=== PATIENT | female | born 1985 | race Caucasian/White ===

== ENCOUNTER 2020-10-23 05:24 | Emergency (ER) | payer OTHER ==
[2020-10-23 05:30] VITALS: BP 135/89; PULSE 100; RESP 19; TEMP 98
--- NOTE | 2020-10-23 06:19 | ED ---
ENT HPI - General Chief complaint: Dental/Oral Stated complaint: Dental Pain Time Seen by Provider: 10/23/20 06:01 Source: patient, RN notes reviewed Mode of arrival: ambulatory - History of Present Illness Initial comments: Patient is a 34-year-old female presents to the emergency department complaining of right upper dental pain. Shows is been going on for several days. She notes that she called to get into the dentist but was unable to for the next several days. She notes that the upper right side of her mouth is tender and painful. She notes that she is still able to eat and drink without any issue. She was otherwise a well-appearing 34-year-old female in no apparent distress. She noted that she wanted symptom medic control and antibiotics. She noted her pain was approximately 5 or 6 out of 10 that is constant without relief from at home medications. She denied any chest pain shortness of breath headache nausea vomiting diarrhea constipation fever fatigue chills sore throat difficulty swallowing. - Related Data Previous Rx's Medication Instructions Recorded Penicillin V Potassium [Pen Vee K] 500 mg PO QID #40 tablet 10/23/20 Allergies Allergy/AdvReac Type Severity Reaction Status Date / Time lidocaine Allergy Anaphylaxis Verified 10/23/20 05:31 metoclopramide [From Reglan] AdvReac Rash/Hives Verified 10/23/20 05:31 Review of Systems ROS Statement: Those systems with pertinent positive or pertinent negative responses have been documented in the HPI. ROS Other: All systems not noted in ROS Statement are negative. Past Medical History Additional Past Medical History / Comment(s): autoimmue disorder History of Any Multi-Drug Resistant Organisms: None Reported Past Surgical History: No Surgical Hx Reported Past Psychological History: No Psychological Hx Reported Smoking Status: Never smoker Past Alcohol Use History: None Reported Past Drug Use History: None Reported General Exam Limitations: no limitations General appearance: alert, in no apparent distress Head exam: Present: atraumatic, normocephalic, normal inspection Eye exam: Present: normal appearance, PERRL, EOMI. Absent: scleral icterus, conjunctival injection, periorbital swelling ENT exam: Present: normal exam, mucous membranes moist, other (No obvious abscesses or infections.) Neck exam: Present: normal inspection, full ROM. Absent: tenderness, lymphadenopathy Respiratory exam: Present: normal lung sounds bilaterally. Absent: respiratory distress, wheezes, rales, rhonchi, stridor Cardiovascular Exam: Present: regular rate, normal rhythm, normal heart sounds. Absent: systolic murmur, diastolic murmur, rubs, gallop, clicks Extremities exam: Present: normal inspection, full ROM, normal capillary refill. Absent: tenderness, pedal edema, joint swelling, calf tenderness Neurological exam: Present: alert, oriented X3 Psychiatric exam: Present: normal affect, normal mood Skin exam: Present: warm, dry, intact, normal color. Absent: rash Course Vital Signs 10/23/20 05:28 Temperature 98 F Pulse Rate 100 Respiratory 19 Rate Blood Pressure 135/89 O2 Sat by Pulse 100 Oximetry Medical Decision Making - Medical Decision Making 34-year-old female with a right upper mouth pain states that she thinks it might be a tooth infection. Tylenol 3 starter pack given. Antibiotics will be sent to pharmacy. Given patient's clinical signs and symptoms of no obvious infections or a bscesses patient will be discharged home with antibiotic therapy. Case discussed with Dr. Saba, patient can discharge home in stable condition with follow-up to dentist next several days. Disposition Clinical Impression: Dental infection Disposition: HOME SELF-CARE Condition: Stable Instructions (If sedation given, give patient instructions): Toothache (ED) Additional Instructions: Please return to the Emergency Department if symptoms worsen or any other concerns. Follow-up with the dentist in the next 1-2 days. Follow-up with primary care as needed. Take antibiotics as prescribed. Take Tylenol 3 as prescribed. Prescriptions: Penicillin V Potassium [Pen Vee K] 500 mg PO QID #40 tablet Is patient prescribed a controlled substance at d/c from ED?: No Referrals: None,Stated [Primary Care Provider] - 1-2 days Time of Disposition: 06:19
[2020-10-23] MEDS: ACET/COD 300 MG/30 MG STARTER PACK 6 TAB BTL PO STA (06:37)
== END 2020-10-23 06:44 | disposition home or self-care (01) ==
LOC: EC 05:24
DX: K04.7 Periapical abscess without sinus (principal)
CPT/HCPCS: 99282

== ENCOUNTER 2022-01-04 10:10 | Emergency (ER) | payer OTHER ==
[2022-01-04 10:26] VITALS: RESP 18; TEMP 98.9
[2022-01-04] MEDS ORDERED: SODIUM CHLORIDE 0.9% 500 ML 500 ML IV STA (10:31)
[2022-01-04] MEDS ORDERED: KETOROLAC 15 MG/ML 1 ML VIAL IVP STA (10:31)
[2022-01-04 10:52] LABS: Anisocytosis Slight; Basophils % (A) 1 %; Eosinophils # (A) 0.2 k/uL (0-0.7); Eosinophils % (A) 3 %; HCT 32.1 % (34.0-46.0); HGB 9.3 gm/dL (11.4-16.0); Hypochromasia Marked; Lymphocytes # (A) 1.4 k/uL (1.0-4.8); Lymphocytes % (A) 29 %; MCH 22.4 pg (25.0-35.0); MCV 77.4 fL (80.0-100.0); Mean Platelet Volume 7.5; Microcytosis Slight; Monocytes # (A) 0.3 k/uL (0-1.0); Monocytes % (A) 6 %; Neutrophils # (A) 2.8 k/uL (1.3-7.7); Neutrophils % (A) 58 %; Platelet Count 422 k/uL (150-450); RBC 4.15 m/uL (3.80-5.40); RDW 16.9 % (11.5-15.5); WBC 4.8 k/uL (3.8-10.6)
[2022-01-04 11:15] LABS: ALT 15 U/L (4-34); AST 25 U/L (14-36); African American GFR (CKD) >90 (>60 ml/min/1.73 sqM); Alkaline Phosphatase 50 U/L (38-126); Anion Gap 9 mmol/L; Blood Urea Nitrogen 17 mg/dL (7-17); Calcium 8.4 mg/dL (8.4-10.2); Carbon Dioxide 25 mmol/L (22-30); Chloride 103 mmol/L (98-107); Glucose 86 mg/dL (74-99); Lipase 104 U/L (23-300); Magnesium 1.9 mg/dL (1.6-2.3); Non-African American GFR(CKD) >90 (>60 ml/min/1.73 sqM); Partial Thromboplastin Time 21.5 sec (22.0-30.0); Potassium 4.2 mmol/L (3.5-5.1); Prothrombin Time 10.8 sec (9.0-12.0); Sodium 137 mmol/L (137-145); Total Bilirubin 0.5 mg/dL (0.2-1.3); Total Protein 6.6 g/dL (6.3-8.2)
--- NOTE | 2022-01-04 11:24 | XR ---
EXAMINATION TYPE: XR chest 2V DATE OF EXAM: 01/04/2022 COMPARISON: None HISTORY: 36-year-old female with chest pain TECHNIQUE: PA and lateral views FINDINGS: The cardiomediastinal silhouette, aorta, and pulmonary vasculature are within normal limits. Lungs an d pleural spaces are clear. IMPRESSION: No acute cardiopulmonary process.
[2022-01-04] MEDS ORDERED: HYDROmorphone 0.5 MG/0.5 ML SYRINGE IVP STA (12:44)
[2022-01-04] MEDS ORDERED: ONDANSETRON 4 MG/2 ML VIAL IVP STA (12:44)
[2022-01-04] MEDS ORDERED: ACET/COD 300 MG/30 MG STARTER PACK 6 TAB BTL PO STA (12:46)
--- NOTE | 2022-01-04 12:46 | ED ---
Chest Pain HPI - General Chief Complaint: Chest Pain Stated Complaint: Chest Pain Time Seen by Provider: 01/04/22 10:16 Source: patient, EMS, RN notes reviewed Mode of arrival: EMS Limitations: no limitations - History of Present Illness Initial Comments: 36-year-old female presents emergency Department with chief complaint of right- sided chest pain 4 days. Patient states hurts when she moves or takes deep breath. Denies any palpitations no prior cardiac disease denies hypertension hyperlipidemia diabetes patient has no prior lung disease no history DVT or PE denies any long distance traveling pain no leg swelling.patient had no nausea vomiting cold-like symptoms. - Related Data Home Medications Medication Instructions Recorded Confirmed Dextroamphetamine/Amphetamine 30 mg PO BID@0900,1500 01/04/22 01/04/22 [Adderall] FLUoxetine HCL [PROzac] 20 mg PO DAILY 01/04/22 01/04/22 Levothyroxine Sodium [Synthroid] 50 mcg PO DAILY 01/04/22 01/04/22 Previous Rx's Medication Instructions Recorded Ibuprofen [Motrin] 600 mg PO Q8HR PRN #20 tab 01/04/22 Allergies Allergy/AdvReac Type Severity Reaction Status Date / Time lidocaine Allergy Anaphylaxis Verified 01/04/22 11:02 metoclopramide [From Reglan] AdvReac Rash/Hives Verified 01/04/22 11:02 Review of Systems ROS Statement: Those systems with pertinent positive or pertinent negative responses have been documented in the HPI. ROS Other: All systems not noted in ROS Statement are negative. 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 Absent: scleral icterus, conjunctival injection, periorbital swelling ENT exam: Present: normal exam, normal oropharynx, mucous membranes moist Neck exam: Present: normal inspection, full ROM. Absent: tenderness, meningismus, lymphadenopathy Respiratory exam: Present: normal lung sounds bilaterally, chest wall tenderness. Absent: respiratory distress, wheezes, rales, rhonchi, stridor Cardiovascular Exam: Present: regular rate, normal rhythm, normal heart sounds. Absent: systolic murmur, diastolic murmur, rubs, gallop, clicks GI/Abdominal exam: Present: soft, normal bowel sounds. Absent: distended, tenderness, guarding, rebound, rigid Extremities exam: Present: normal capillary refill. 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 Patient has negative troponin negative d-dimer. Disposition Clinical Impression: Pleurisy Disposition: HOME SELF-CARE Condition: Stable Instructions (If sedation given, give patient instructions): Chest Pain (ED), Costochondritis (ED) Additional Instructions: Please return to the Emergency Department if symptoms worsen or any other concerns. Prescriptions: Ibuprofen [Motrin] 600 mg PO Q8HR PRN #20 tab PRN Reason: Pain Is patient prescribed a controlled substance at d/c from ED?: No Referrals: Nonstaff,Physician [Primary Care Provider] - 1-2 days Time of Disposition: 12:25
[2022-01-04 13:18] VITALS: BP 130/78; PULSE 80
== END 2022-01-04 13:15 | disposition home or self-care (01) ==
LOC: EC 10:10
DX: R09.1 Pleurisy (principal); Z88.8 Allergy status to other drugs, medicaments and biological substances
CPT/HCPCS: 36415; 93005; 85379; 80053; 83690; 83735; 84484; 85025; 85610; 85730; 71046; 99285; 96374; 96361; J1885

== ENCOUNTER 2024-07-20 09:31 | Emergency (ER) | payer OTHER ==
[2024-07-20 09:37] VITALS: RESP 18; TEMP 98
--- NOTE | 2024-07-20 09:59 | ED ---
ENT HPI - General Chief complaint: Dental/Oral Stated complaint: dental pain Time Seen by Provider: 07/20/24 09:57 Source: patient, family (significant other ), RN notes reviewed Mode of arrival: ambulatory Limitations: no limitations - History of Present Illness Initial comments: 38-year-old female presenting to the ER for evaluation of dental pain. Fo llowing up with oral surgeon out of [facility]. She is scheduled to surgery to remove a fractured tooth but has been battling a dental infection to her right upper jaw for approximately 2-1/2 weeks. Patient was on amoxicillin prescribed by oral surgeon 2 weeks ago and was recently started on clindamycin by PCP for continued concern of infection. Oral surgeon is unwilling to remove tooth until infection is under control given risks. She has been taking [id number] ibuprofen and Tylenol every 2-3 hours without relief of pain. Patient reports body aches and pain limiting her sleep and ability to eat. She was unable to sleep tonight given pain. Patient is allergic to lidocaine and is limited on analgesic options. She denies any difficulty breathing, swallowing, tongue or throat swelling. Patient has no other complaints at this time - Related Data Home Medications Medication Instructions Recorded Confirmed Dextroamphetamine/Amphetamine 30 mg PO BID@0900,1500 01/04/22 01/04/22 [Adderall] FLUoxetine HCL [PROzac] 20 mg PO DAILY 01/04/22 01/04/22 Levothyroxine Sodium [Synthroid] 50 mcg PO DAILY 01/04/22 01/04/22 Previous Rx's Medication Instructions Recorded Ibuprofen [Motrin] 600 mg PO Q8HR PRN #20 tab 01/04/22 Ibuprofen [Motrin] 600 mg PO Q8HR PRN #30 tab 07/20/24 Allergies Allergy/AdvReac Type Severity Reaction Status Date / Time lidocaine Allergy Anaphylaxis Verified 07/20/24 09:37 metoclopramide [From Reglan] AdvReac Rash/Hives Verified 07/20/24 09:37 Review of Systems ROS Statement: Those systems with pertinent positive or pertinent negative responses have been documented in the HPI. ROS Other: All systems not noted in ROS Statement are negative. 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 There is no drainable abscess or purulent drainage. No tongue or throat swelling. No lip edema.) Neck exam: Present: normal inspection. Absent: tenderness, meningismus, lymphadenopathy Respiratory exam: Present: normal lung sounds bilaterally. Absent: respiratory distress, wheezes, rales, rhonchi, stridor Cardiovascular Exam: Present: regular rate, normal rhythm, normal heart sounds. Absent: systolic murmur, diastolic murmur, rubs, gallop, clicks Neurological exam: Present: alert, oriented X3, CN II-XII intact Skin exam: Present: warm, dry, intact, normal color. Absent: rash Course Vital Signs 07/20/24 07/20/24 09:35 11:16 Temperature 98 F 98 F Pulse Rate 108 H 94 Respiratory 18 18 Rate Blood Pressure 129/92 120/76 O2 Sat by Pulse 98 98 Oximetry Medical Decision Making - Medical Decision Making Was pt. sent in by a medical professional or institution (, PA, STRIPE MATCHER, urgent care, hospital, or prison...) When possible be specific @ -No Did you speak to anyone other than the patient for history (EMS, parent, family, police, friend...)? What history was obtained from this source @ -Significant other, at bedside, aiding in HPI. Did you review nursing and triage notes (agree or disagree)? Why? @ -I reviewed and agree with nursing and triage notes Were old charts reviewed (outside hosp., previous admission, EMS record, old EKG, old radiological studies, urgent care reports/EKG's, prison records)? Report findings @ -No old charts were reviewed Differential Diagnosis (chest pain, altered mental status, abdominal pain women, abdominal pain men, vaginal bleeding, weakness, fever, dyspnea, syncope, headache, dizziness, GI bleed, back pain, seizure, CVA, palpatations, mental health, musculoskeletal)? @ -Dental carry, dental abscess, Lv angina, fractured tooth... This list is not meant to be all inclusive EKG interpreted by me (3pts min.). @ -None X-rays interpreted by me (1pt min.). @ -None done CT interpreted by me (1pt min.). @ -None done U/S interpreted by me (1pt. min.). @ -None done What testing was considered but not performed or refused? (CT, X-rays, U/S, labs)? Why? @ -None What meds were considered but not given or refused? Why? @ -Oragel and dental block patient allergic to lidocaine Did you discuss the management of the patient with other professionals (professionals i.e. , PA, STRIPE MATCHER, lab, RT, psych nurse, social work associate, welding rod coater, teacher, property utilization officer, case finishing machine adjuster)? Give summary @ -No Was smoking cessation discussed for >3mins.? @ -No Was critical care preformed (if so, how long)? @ -No Were there social determinants of health that impacted care today? How? (Homelessness, low income, unemployed, alcoholism, drug addiction, transportation, low edu. Level, literacy, decrease access to med. care, prison, rehab)? @ -No Was there de-escalation of care discussed even if they declined (Discuss DNR or withdrawal of care, Hospice)? DNR status @ -No What co-morbidities impacted this encounter? (DM, HTN, Smoking, COPD, CAD, Cancer, CVA, ARF, Chemo, Hep., AIDS, mental health diagnosis, sleep apnea, morbid obesity)? @ -None Was patient admitted / discharged? Hospital course, mention meds given and route, prescriptions, significant lab abnormalities, going to OR and other pertinent info. @ -Discharge. 38-year-old female presenting to the ER for evaluation of right upper tooth pain. Vitals within acceptable limits. Upon my evaluation, patient in no signs of acute distress nontoxic-appearing. There is a fracture of the right upper second molar. No purulent drainage or drainable abscess noted on exam. No concerning signs of Lv angina. Patient seeking pain control for which she was given IM Dilaudid. Upon reevaluation, patient reporting improvement of pain and is comfortable with discharge. I recommended warm salt water rinse and to continue clindamycin as prescribed. Upon chart review and MAPS review patient is prescribed Derby 10 last filled on 07-10-2024 for 60 tablets. Patient also had prescription filled on 07-05-2024 for 60 Derby 5. MAPS 430. Patient will not be prescribed Derby given this. Ibuprofen prescribed. I educated her on the importance of following up closely with the oral surgeon and/or dentist for further evaluation and treatment, referral given. Return parameters discussed. Patient discharged stable condition. Patient verbally expressed understanding agreement with care plan. Case discussed with ED attending, Dr. Wyhte. Undiagnosed new problem with uncertain prognosis? @ -No Drug Therapy requiring intensive monitoring for toxicity (Heparin, Nitro, Insulin, Cardizem)? @ -No Were any procedures done? @ -No Diagnosis/symptom? @ -Dental pain/fractured tooth Acute, or Chronic, or Acute on Chronic? @ -Acute Uncomplicated (without systemic symptoms) or Complicated (systemic symptoms)? @ -Uncomplicated Side effects of treatment? @ -No Exacerbation, Progression, or Severe Exacerbation? @ -No Poses a threat to life or bodily function? How? (Chest pain, [place], [place], pneumonia, PE, COPD, DKA, ARF, appy, cholecystitis, CVA, Diverticulitis, Homicidal, Suicidal, threat to staff... and all critical care pts) @ -Low Disposition Clinical Impression: Fracture of tooth, Toothache Disposition: HOME SELF-CARE Condition: Stable Instructions (If sedation given, give patient instructions): Toothache (ED) Additional Instructions: Follow-up with oral surgeon. Continue taking clindamycin as prescribed. Alternate your prescribed Derby and ibuprofen for pain control. I also recommend salt water rinses. Return to the ER for any new or worsening symptoms. Prescriptions: Ibuprofen [Motrin] 600 mg PO Q8HR PRN #30 tab PRN Reason: Pain Is patient prescribed a controlled substance at d/c from ED?: No Referrals: Margot Park DO [Primary Care Provider] - 1-2 days Talita Rasheed DDS [STAFF PHYSICIAN] - 1-2 days Rosalio Hou DDS [STAFF PHYSICIAN] - 1-2 days Micky Allison DMD [STAFF PHYSICIAN] - 1-2 days Time of Disposition: 11:02
[2024-07-20] MEDS: HYDROmorphone 1 MG/ML 1 ML SYRINGE IM STA (10:05)
[2024-07-20 11:17] VITALS: BP 120/76; PULSE 94
== END 2024-07-20 11:18 | disposition home or self-care (01) ==
LOC: EC 09:31
DX: S02.5XXA Fracture of tooth (traumatic), initial encounter for closed fracture (principal); Z88.8 Allergy status to other drugs, medicaments and biological substances; X58.XXXA Exposure to other specified factors, initial encounter
CPT/HCPCS: 99282; 96372; J1171